=== PATIENT | female | born 1985 | race Hispanic/Latino ===

== ENCOUNTER 2018-03-03 17:04 | Emergency (ER) | payer OTHER ==
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
== END 2018-03-03 18:30 | disposition home or self-care (01) ==
LOC: SCSER 17:04
DX: S83.92XA Sprain of unspecified site of left knee, initial encounter (principal); V18.4XXA Pedal cycle driver injured in noncollision transport accident in traffic accident, initial encounter